=== PATIENT | male | born 1965 | race Two or more races ===

== ENCOUNTER 2017-12-27 05:05 | Day surgery (SDC) | payer OTHER ==
[~2017-12-27] VITALS: Ht 160 cm; Wt 117.9 kg
[2017-12-27 05:49] VITALS: BP 154/87
[2017-12-27] MEDS ORDERED: ANESTHESIA TRAY IN PYXIS 1 EA TRAY MC ONE (06:12)
[2017-12-27] MEDS ORDERED: BUPIVACAINE 0.5 % PF 150 MG/30 ML VIAL ONE (07:10)
[2017-12-27] MEDS ORDERED: methylPREDNISolone ACETATE 40 MG/ML VIAL ONE (07:11)
--- NOTE | 2017-12-27 07:15 | NUR ---
MS/RN NOTES RECEIVED REPORT FROM LUMBER DRIVER RN, PT WAS ALREADY P/U BY OR FOR SURGERY
[2017-12-27 08:00] VITALS: BP 124/65
--- NOTE | 2017-12-27 08:05 | NUR ---
MS/RN NOTES PT CAME BACK FROM LEFT KNEE SURGERY IN STABLE CONDITION. VS TAKEN, LEFT LEG ELEVATED AND ICE PACK IN PLACED. LFA G20 SL INTACT AND PATENT. SAFETY MEASURES IN PLACED. CALL LIGHT WITHIN REACH. WILL CONT TO MONITOR.
[2017-12-27] MEDS ORDERED: LOSA100T15 PO (08:36)
[2017-12-27] MEDS ORDERED: HYDROCODONE/APAP 10/325MG 1 EA TABLET PO ONE (13:30)
--- NOTE | 2017-12-27 14:13 | NUR ---
RN NOTES D/C PT IN STABLE CONDITION TO HOME. D/C INSTRUCTIONS GIVEN TO PT AND . BOTH VERBALIZED UNDERSTANDING. D/C IV LINE. PRESSURE DRESSING IN PLACED. NO BLEEDING NOTED. D/C TO HOME VIA WHEELCHAIR.
== END 2017-12-27 14:13 | disposition home or self-care (01) ==
LOC: DS 05:05 → MEDSG1 05:07 → UNDOADMIN 05:07 → DS 14:13
PROVIDERS: ATTEND Specialist
DX: S83.242A Other tear of medial meniscus, current injury, left knee, initial encounter (principal); S83.282A Other tear of lateral meniscus, current injury, left knee, initial encounter; M94.262 Chondromalacia, left knee; X58.XXXA Exposure to other specified factors, initial encounter; Y93.89 Activity, other specified; Y92.89 Other specified places as the place of occurrence of the external cause; Y99.8 Other external cause status; I10 Essential (primary) hypertension; E66.01 Morbid (severe) obesity due to excess calories; Z68.42 Body mass index [BMI] 45.0-49.9, adult; Z79.899 Other long term (current) drug therapy; Z98.890 Other specified postprocedural states
CPT/HCPCS: 29880; 36415; 86850; J0690; J1030; J1100; J2704; J3490 ×2; A4217; A4606; A6253; Z7610